=== PATIENT | female | born 1975 | race African-American/Black ===

== ENCOUNTER 2016-11-15 08:33 | Day surgery (SDC) | payer OTHER ==
[~2016-11-15] VITALS: Ht 160 cm; Wt 60.5 kg
[~2016-11-15 08:33] MED LIST: ATENOLOL50 MG PO; ATIVAN1 MG PO; BUSPAR15 MG PO; DICYCLOMINE HCL20 MG PO; FIORICET 50-301 EACH PO; LORAZEPAM1 MG PO; LYRICA50 MG PO; PEPCID20 MG PO; PREVACID30 MG PO; SEROQUEL XR400 MG PO; SEROQUEL100 MG PO; SEROQUEL50 MG PO; ULTRAM50 MG PO; ZOFRAN4 MG PO
[2016-11-15 09:31] VITALS: BP 127/77
[2016-11-15 16:51] VITALS: BP 147/58
[2016-11-15 19:05] LABS: HEMATOCRIT 43.7 % (36.0-46.0); MCV 95.2 FL (83-99)
[2016-11-15 20:38] VITALS: BP 108/64
[2016-11-15 23:37] VITALS: BP 114/64
[2016-11-16 04:12] VITALS: BP 110/70
[2016-11-16 07:25] LABS: EOSINOPHIL (%) 0.2 % (0-5); HEMATOCRIT 31.5 % (36.0-46.0); IMMATURE GRANULOCYTE (%) 0.6 % (0.0-0.7); IMMATURE GRANULOCYTE COUNT 0.1 K/uL; INSTRUMENT ABS NEUTROPHIL CT 6.3 K/uL; LYMPHOCYTE COUNT 1.6 K/uL (1.0-2.8); MCH 30.4 PG (29.0-34.0); MCHC 32.7 G/DL (30.0-36.0); MCV 92.9 FL (83-99); MEAN PLAT.VOLUME 10.2 uM^3 (9.5-12.4); MONOCYTE (%) 6.6 % (3-12); MONOCYTE COUNT 0.6 K/uL (0-0.8); NEUTROPHIL (%) 73.7 % (45-76); NEUTROPHIL COUNT 6.3 K/uL (1.8-6.4); PLATELET COUNT 230 K/uL (156-360); RBC DIS.WIDTH-CV 14.1 % (11.8-14.6); RBC DIS.WIDTH-SD 48.5 % (39-53); RED BLOOD COUNT 3.39 M/uL (3.80-5.20); WHITE BLOOD COUNT 8.5 K/uL (4.1-10.2)
[2016-11-16 07:37] LABS: ANION GAP 7 MEQ/L (2-14); CHLORIDE 107 MEQ/L (99-109); GFR ESTIMATE (CALCULATED) > 59 mL/min/; GLUCOSE 93 mg/dL (70-99); POTASSIUM 3.5 MEQ/L (3.7-5.4); SAMPLE HEMOLYSIS CHECK 0; SAMPLE ICTERIC CHECK 0; SAMPLE LIPEMIA CHECK 0; SODIUM 140 MEQ/L (136-147); UREA NITROGEN (BUN) 6 mg/dL (9-23)
[2016-11-16] MEDS ORDERED: HYDROMORPHONE HC2 MG PO (08:18)
[2016-11-16] MEDS ORDERED: MOTRIN600 MG PO (08:18)
[2016-11-16 08:21] VITALS: BP 116/63
[2016-11-16 12:04] VITALS: BP 149/69
[2016-11-16 16:12] VITALS: BP 137/83
== END 2016-11-16 17:34 | disposition home or self-care (01) ==
LOC: SDC 08:33 → 2SOUTH 15:07 → 2EASTP 15:07 → 2SOUTH 15:07 → 2EASTP 16:43
PROVIDERS: Obstetrics & Gynecology
DX: N92.0 Excessive and frequent menstruation with regular cycle (principal); N94.6 Dysmenorrhea, unspecified; Z85.3 Personal history of malignant neoplasm of breast; Z80.3 Family history of malignant neoplasm of breast; Z15.01 Genetic susceptibility to malignant neoplasm of breast; Z15.02 Genetic susceptibility to malignant neoplasm of ovary; N80.0 Endometriosis of uterus; N83.01 Follicular cyst of right ovary; N83.02 Follicular cyst of left ovary; D25.1 Intramural leiomyoma of uterus; I10 Essential (primary) hypertension; K21.9 Gastro-esophageal reflux disease without esophagitis; Z84.1 Family history of disorders of kidney and ureter; Z81.8 Family history of other mental and behavioral disorders; Z82.49 Family history of ischemic heart disease and other diseases of the circulatory system; Z83.49 Family history of other endocrine, nutritional and metabolic diseases; Z80.0 Family history of malignant neoplasm of digestive organs; F17.200 Nicotine dependence, unspecified, uncomplicated; Z88.5 Allergy status to narcotic agent; Z88.8 Allergy status to other drugs, medicaments and biological substances
CPT/HCPCS: 80048; 85014; 85018; 85025; 88307; 93005; 94799; G0378; J0131; J0330; J0690; J1100; J1170; J1200; J1885; J2405; J2765; J3010; J7120; S0020

== ENCOUNTER 2017-05-07 18:31 | Emergency (ER) | payer OTHER ==
[~2017-05-07] VITALS: Ht 160 cm; Wt 63.8 kg
[~2017-05-07 18:31] MED LIST changes: +HYDROMORPHONE HC2 MG PO; +MOTRIN600 MG PO
[2017-05-07 21:13] LABS: EOSINOPHIL (%) 1.5 % (0-5); EOSINOPHIL COUNT 0.1 K/uL (0-0.3); HEMATOCRIT 41.8 % (36.0-46.0); IMMATURE GRANULOCYTE (%) 0.6 % (0.0-0.7); IMMATURE GRANULOCYTE COUNT 0.1 K/uL; INSTRUMENT ABS NEUTROPHIL CT 6.9 K/uL; LYMPHOCYTE COUNT 1.9 K/uL (1.0-2.8); MCH 30.8 PG (29.0-34.0); MCV 90.7 FL (83-99); MEAN PLAT.VOLUME 10.6 uM^3 (9.5-12.4); MONOCYTE (%) 4.7 % (3-12); MONOCYTE COUNT 0.5 K/uL (0-0.8); NEUTROPHIL (%) 72.5 % (45-76); NEUTROPHIL COUNT 6.9 K/uL (1.8-6.4); PLATELET COUNT 293 K/uL (156-360); RBC DIS.WIDTH-CV 14.1 % (11.8-14.6); RBC DIS.WIDTH-SD 47.1 % (39-53); RED BLOOD COUNT 4.61 M/uL (3.80-5.20); WHITE BLOOD COUNT 9.5 K/uL (4.1-10.2)
[2017-05-07 21:28] LABS: CHLORIDE 106 mEq/L (99-109); POTASSIUM 3.7 mEq/L (3.7-5.4); SODIUM 142 mEq/L (136-147)
[2017-05-07 21:30] LABS: GLUCOSE 110 mg/dL (70-99)
[2017-05-07 21:31] LABS: ANION GAP 13 MEQ/L (2-14)
[2017-05-07 21:32] LABS: TOTAL BILIRUBIN 0.4 mg/dL (0.0-1.0)
[2017-05-07 21:33] LABS: SERUM ETHYL ALCOHOL < 10 mg/dL
[2017-05-07 21:34] LABS: ALKALINE PHOSPHATASE 78 IU/L (3-129); GFR ESTIMATE (CALCULATED) > 59 mL/min/
[2017-05-07 21:35] LABS: UREA NITROGEN (BUN) 11 mg/dL (9-23)
[2017-05-07 21:43] LABS: TROP-I INTERPRETATION NEGATIVE; TROPONIN-I 0.02 ng/mL (0.0-0.30)
[2017-05-08] MEDS ORDERED: LOPRESSOR25 MG PO (01:35)
[2017-05-08] MEDS ORDERED: NORVASC5 MG PO (01:35)
[2017-05-08] MEDS ORDERED: MOTRIN600 MG PO (01:35)
[2017-05-08 01:42] VITALS: BP 102/63
== END 2017-05-08 02:06 | disposition home or self-care (01) ==
LOC: EME 18:31
PROVIDERS: Emergency Medicine
DX: F32.9 Major depressive disorder, single episode, unspecified (principal); F41.9 Anxiety disorder, unspecified; I10 Essential (primary) hypertension; G43.909 Migraine, unspecified, not intractable, without status migrainosus; K21.9 Gastro-esophageal reflux disease without esophagitis; Z86.73 Personal history of transient ischemic attack (TIA), and cerebral infarction without residual deficits; Z85.3 Personal history of malignant neoplasm of breast; Z90.13 Acquired absence of bilateral breasts and nipples; Z63.5 Disruption of family by separation and divorce
CPT/HCPCS: 70450; 80053; 84484; 85025; 90839; 99281; 99285; G0480; J1885; J2765; J7040

== ENCOUNTER → 2017-12-29 | Outpatient (CLI) | payer OTHER ==
[~2017-12-29] MED LIST changes: +LOPRESSOR25 MG PO; +NORVASC5 MG PO
== END | disposition home or self-care (01) ==
LOC: NUC 06:58
DX: Z71.1 Person with feared health complaint in whom no diagnosis is made (principal)
CPT/HCPCS: 78264; A9541

== ENCOUNTER → 2018-03-30 | Outpatient (CLI) | payer OTHER ==
[~2018-03-30] VITALS: Ht 160 cm; Wt 68.1 kg
[~2018-03-30] MED LIST changes: +DEPAKOTE ER500 MG PO
== END | disposition home or self-care (01) ==
LOC: AMB 12:01
PROC: 0DB68ZX Excision of Stomach, Via Natural or Artificial Opening Endoscopic, Diagnostic (ICD-10-PCS; principal; 2018-03-30)
DX: K29.70 Gastritis, unspecified, without bleeding (principal); R00.1 Bradycardia, unspecified; K21.9 Gastro-esophageal reflux disease without esophagitis; I10 Essential (primary) hypertension; Z88.5 Allergy status to narcotic agent
CPT/HCPCS: 88305; 88342 TC; 93005; J2250